=== PATIENT | male | born 1990 | race Two or more races ===

== ENCOUNTER 2019-08-26 02:30 | Emergency (ER) | payer OTHER ==
[~2019-08-26] VITALS: Ht 172.7 cm; Wt 74.4 kg
[2019-08-26] MEDS ORDERED: HYDROCODONE/APAP 5/325MG 1 EACH TABLET PO ONE (03:00)
[2019-08-26] MEDS ORDERED: HYDROCODONE/APAP 5/325MG 1 EACH TABLET ONE (03:26)
--- NOTE | 2019-08-26 03:40 | NUR ---
Patient discharged to home in stable condition. Rx and Written and verbal after care instructions given. Patient verbalizes understanding of instruction.
[2019-08-26 03:42] VITALS: BP 132/69
== END 2019-08-26 03:43 | disposition home or self-care (01) ==
LOC: ER 02:31
DX: R10.9 Unspecified abdominal pain (principal)
CPT/HCPCS: 74018